=== PATIENT | female | born 1935 | race African-American/Black ===

== ENCOUNTER 2016-07-04 09:16 | Inpatient (IN) | payer MEDICARE ==
[~2016-07-04] VITALS: Ht 162.6 cm; Wt 64.9 kg
[~2016-07-04 09:16] MED LIST: AMLO1CAP PO; ASPI325T2 PO; METF-246 PO; OXYC-159 PO
[2016-07-04] MEDS ORDERED: MONT4TAB8 PO (09:31)
[2016-07-04] MEDS ORDERED: OMEP40CA34 PO (09:32)
[2016-07-04 10:57] LABS: BASOPHILS % 0.9 % (0.0-2.0); EOSINOPHILS % 0.8 % (0.0-5.0); HEMOGLOBIN. 10.2 g/dL (12.0-16.0); LYMPHOCYTES % 14.5 % (20.0-50.0); MEAN CORPUSCULAR HEMOGLOBIN 25.9 pg (28.0-32.0); MEAN CORPUSCULAR VOLUME 83.6 fL (81.0-99.0); MEAN PLATELET VOLUME 9.1 fl (7.4-10.4); MONOCYTES % 10.7 % (2.0-8.0); NEUTROPHILS % 73.1 % (40.0-76.0); PLATELET 167 x1000/uL (130-400); RED BLOOD CELL COUNT 3.95 mill/uL (4.2-5.4); WHITE BLOOD COUNT 13.4 x1000/uL (4.5-11.0)
[2016-07-04 11:07] LABS: INR 1.1; PROTHROMBIN TIME 11.4 sec
[2016-07-04 11:12] LABS: ALANINE AMINOTRANSFERASE 13 IU/L (13-61); ALBUMIN 3.4 g/dL (3.4-5.0); ANION GAP 7; CALCIUM 8.5 mg/dL (8.5-10.1); CARBON DIOXIDE 37 mEq/L (21-32); CHLORIDE 100 mEq/L (98-107); INDEX HEMOLYSI 1 (1-3); INDEX ICTERIC 1 (1-4); INDEX LIPEMIC 1 (1-3); UREA NITROGEN BLOOD 18 mg/dL (7-21); eGFR 40 mL/min (>60)
[2016-07-04 11:15] LABS: NT PRO B-TYPE NATRIURETIC PEP 1716 pg/mL (5-125); TROPONIN I 0.31 ng/mL (0.00-0.04)
[2016-07-04 12:37] LABS: CLARITY URINE CLEAR (CLEAR); COLOR URINE YELLOW (YELLOW); GLUCOSE URINE NEGATIVE (NEGATIVE); KETONES URINE NEGATIVE (NEGATIVE); LEUKOCYTE ESTERASE URINE NEGATIVE (NEGATIVE); NITRITE URINE NEGATIVE (NEGATIVE); OCCULT BLOOD URINE TRACE (NEGATIVE); PH URINE 5.5 (4.5-8.0); PROTEIN URINE 2+ (NEGATIVE); SPECIFIC GRAVITY URINE 1.021 (1.005-1.030)
[2016-07-04] MEDS ORDERED: MORPHINE SULFATE 4 MG/ML CPJ (NOT FOR IM USE) IV ONE (12:45)
[2016-07-04] MEDS ORDERED: ONDANSETRON HCL 4MG/2ML VIAL IV ONE (12:45)
[2016-07-04 12:57] LABS: SQUAMOUS EPITHELIAL CELL URINE 2+ /lpf (RARE/1+)
[2016-07-04 12:58] LABS: BACTERIA URINE TRACE
[2016-07-04 12:59] LABS: RBC URINE 0-2 /hpf (0-2); WBC URINE 0-2 /hpf (0-2); YEAST URINE RARE
[2016-07-04] MEDS ORDERED: HYDROCODONE/ACETAMINOPHEN 5/325MG TABLET PO ONE (13:00)
[2016-07-04 14:50] VITALS: BP 145/75
[2016-07-04 16:05] VITALS: BP 145/75
[2016-07-04] MEDS ORDERED: IPRATROPIUM/ALBUTEROL 0.5-3(2.5)MG/3ML NEB INH PRN (16:15)
[2016-07-04] MEDS ORDERED: CLONIDINE 0.1MG TABLET PO PRN ×2 (16:15)
[2016-07-04] MEDS ORDERED: MAGNESIUM/ALUMINUM HYDROXIDE/SIMETHICONE 30ML UDC PO PRN (16:15)
[2016-07-04] MEDS ORDERED: HYDROMORPHONE HCL/PF 2MG/ML CPJ IV PRN (16:15)
[2016-07-04] MEDS ORDERED: ONDANSETRON HCL 4MG/2ML VIAL IV PRN (16:15)
[2016-07-04] MEDS ORDERED: DOCUSATE SODIUM 100MG CAPSULE PO PRN (16:15)
[2016-07-04] MEDS: MONTELUKAST SODIUM 10MG TABLET PO SCH (16:49)
[2016-07-04] MEDS: ENOXAPARIN 30MG/0.3ML SYR SUBCUT SCH (16:50)
[2016-07-04] MEDS: BENAZEPRIL 10MG TABLET PO SCH (16:52)
[2016-07-04] MEDS ORDERED: DEXTROSE 50% WATER 50ML SYRINGE IV PRN (17:30)
[2016-07-04] MEDS: INSULIN LISPRO 100 UNITS/ML SUBCUT SCH ×2 (17:40→21:00)
[2016-07-04] MEDS: BLOOD SUGAR DIAGNOSTIC STRIP TEST SCH ×3 (17:48→21:00)
[2016-07-04 20:00] VITALS: BP_SYST 125; BP_SYST 129; BP_SYST 134; BP_DIAS 80; BP_DIAS 87
[2016-07-04] MEDS: AMLODIPINE 2.5MG TABLET PO SCH (20:03)
[2016-07-04] MEDS: HYDROCODONE/ACETAMINOPHEN 10/325MG TABLET PO PRN (20:03)
[2016-07-05] VITALS: BP_SYST 127; BP_SYST 137; BP_DIAS 68; BP_DIAS 76
[2016-07-05] MEDS: ACETAMINOPHEN 325MG TABLET PO PRN ×2 (04:52→04:53)
[2016-07-05] MEDS: BLOOD SUGAR DIAGNOSTIC STRIP TEST SCH ×5 (06:34→21:09)
[2016-07-05] MEDS: INSULIN LISPRO 100 UNITS/ML SUBCUT SCH ×4 (06:34→21:00)
[2016-07-05 07:03] LABS: BASOPHILS % 0.5 % (0.0-2.0); EOSINOPHILS % 0.3 % (0.0-5.0); HEMATOCRIT. 32.8 % (36.0-48.0); HEMOGLOBIN. 10.1 g/dL (12.0-16.0); LYMPHOCYTES % 10.8 % (20.0-50.0); MEAN CORPUSCULAR HEMOGLOBIN 25.7 pg (28.0-32.0); MEAN CORPUSCULAR HGB CONC 30.8 g/dL (31.0-37.0); MEAN CORPUSCULAR VOLUME 83.6 fL (81.0-99.0); MEAN PLATELET VOLUME 9.6 fl (7.4-10.4); MONOCYTES % 10.7 % (2.0-8.0); NEUTROPHILS % 77.7 % (40.0-76.0); PLATELET 140 x1000/uL (130-400); RED BLOOD CELL COUNT 3.93 mill/uL (4.2-5.4); RED CELL DISTRIBUTION WIDTH 14.6 % (11.6-14.6); WHITE BLOOD COUNT 12.9 x1000/uL (4.5-11.0)
[2016-07-05 07:43] LABS: CALCIUM 8.5 mg/dL (8.5-10.1); CHLORIDE 101 mEq/L (98-107); INDEX HEMOLYSI 1 (1-3); INDEX ICTERIC 1 (1-4); INDEX LIPEMIC 1 (1-3)
[2016-07-05 07:49] LABS: ALANINE AMINOTRANSFERASE 11 IU/L (13-61); ANION GAP 11; CARBON DIOXIDE 32 mEq/L (21-32); CREATINE KINASE 117 IU/L (26-192); CREATINE KINASE MB FRACTION 0.9 ng/mL (0.5-3.6); HDL CHOLESTEROL 61 mg/dL (40-59); LDL CHOLESTEROL 47 mg/dL (5-100); MAGNESIUM 2.3 mg/dL (1.8-2.4); TRIGLYCERIDE 77 mg/dL (0-150); TROPONIN I 0.16 ng/mL (0.00-0.04); UREA NITROGEN BLOOD 15 mg/dL (7-21); eGFR 52 mL/min (>60)
[2016-07-05 08:00] VITALS: BP_SYST 121; BP_SYST 131; BP_DIAS 66; BP_DIAS 75
[2016-07-05] MEDS ORDERED: MECLIZINE 25MG TABLET PO PRN (08:00)
[2016-07-05] MEDS ORDERED: ASPIRIN 81MG EC TABLET PO SCH (09:00)
[2016-07-05] MEDS: BENAZEPRIL 10MG TABLET PO SCH ×2 (09:06→16:53)
[2016-07-05] MEDS: AMLODIPINE 2.5MG TABLET PO SCH ×2 (09:06→20:55)
[2016-07-05] MEDS: ASPIRIN 81MG EC TABLET PO SCH (09:07)
[2016-07-05] MEDS: HYDROCODONE/ACETAMINOPHEN 10/325MG TABLET PO PRN (09:08)
[2016-07-05 12:00] VITALS: BP 123/71
[2016-07-05] MEDS: OXYCODONE HCL/ACETAMINOPHEN 5/325MG TABLET PO PRN ×2 (15:00→21:02)
[2016-07-05 16:00] VITALS: BP 128/66
[2016-07-05] MEDS: ENOXAPARIN 30MG/0.3ML SYR SUBCUT SCH (16:50)
[2016-07-05] MEDS: MONTELUKAST SODIUM 10MG TABLET PO SCH (16:53)
[2016-07-05 18:02] LABS: TROPONIN I 0.11 ng/mL (0.00-0.04)
[2016-07-05 20:00] VITALS: BP 131/70
[2016-07-05] MEDS: AZITHROMYCIN 500 MG in DEXT 5% WATER 250 ML IV SCH (20:53)
[2016-07-05] MEDS: CEFTRIAXONE 1 G PREMIX 50 ML IV SCH (20:53)
[2016-07-05] MEDS: GUAIFENESIN 600MG ER TABLET PO SCH (20:54)
[2016-07-05] MEDS ORDERED: SIMBRINZA BOTHEYE (22:24)
[2016-07-06] VITALS: BP 131/69
[2016-07-06] MEDS: DORZOLAMIDE 2% OPHTH 10 ML BOTTLE BOTHEYE SCH ×3 (01:43→16:41)
[2016-07-06] MEDS: BRIMONIDINE 0.2% OPHTH DROPS 5ML BOTHEYE SCH ×3 (01:43→16:41)
[2016-07-06] MEDS: HYDROMORPHONE HCL/PF 2MG/ML CPJ IV PRN (01:50)
[2016-07-06 04:00] VITALS: BP_SYST 112; BP_SYST 118; BP_SYST 128; BP_DIAS 50; BP_DIAS 69; BP_DIAS 76
[2016-07-06 05:50] LABS: BASOPHILS % 0.4 % (0.0-2.0); EOSINOPHILS % 0.5 % (0.0-5.0); HEMATOCRIT. 31.8 % (36.0-48.0); HEMOGLOBIN. 9.9 g/dL (12.0-16.0); LYMPHOCYTES % 11.3 % (20.0-50.0); MEAN CORPUSCULAR VOLUME 83.6 fL (81.0-99.0); MEAN PLATELET VOLUME 9.9 fl (7.4-10.4); MONOCYTES % 12.1 % (2.0-8.0); NEUTROPHILS % 75.7 % (40.0-76.0); PLATELET 138 x1000/uL (130-400); RED CELL DISTRIBUTION WIDTH 14.5 % (11.6-14.6); WHITE BLOOD COUNT 12.4 x1000/uL (4.5-11.0)
[2016-07-06 05:53] LABS: ANION GAP 10; CALCIUM 8.3 mg/dL (8.5-10.1); CARBON DIOXIDE 34 mEq/L (21-32); CHLORIDE 99 mEq/L (98-107); INDEX HEMOLYSI 1 (1-3); INDEX ICTERIC 1 (1-4); INDEX LIPEMIC 1 (1-3); UREA NITROGEN BLOOD 14 mg/dL (7-21); eGFR > 60 mL/min (>60)
[2016-07-06] MEDS: INSULIN LISPRO 100 UNITS/ML SUBCUT SCH ×5 (06:24→21:06)
[2016-07-06] MEDS: BLOOD SUGAR DIAGNOSTIC STRIP TEST SCH ×4 (06:24→20:41)
[2016-07-06] MEDS: OXYCODONE HCL/ACETAMINOPHEN 5/325MG TABLET PO PRN ×2 (06:49→17:35)
[2016-07-06 08:00] VITALS: BP 121/55
[2016-07-06] MEDS: ASPIRIN 81MG EC TABLET PO SCH (08:50)
[2016-07-06] MEDS: GUAIFENESIN 600MG ER TABLET PO SCH ×2 (08:51→20:35)
[2016-07-06] MEDS: BENAZEPRIL 10MG TABLET PO SCH ×2 (08:53→16:40)
[2016-07-06] MEDS: AMLODIPINE 2.5MG TABLET PO SCH ×3 (08:54→20:37)
[2016-07-06] MEDS ORDERED: DORZOLAMIDE 2% OPHTH 10 ML BOTTLE BOTHEYE SCH (09:00)
[2016-07-06] MEDS ORDERED: BRIMONIDINE 0.2% OPHTH DROPS 5ML BOTHEYE SCH (09:00)
[2016-07-06 12:00] VITALS: BP_SYST 113; BP_SYST 125; BP_DIAS 64; BP_DIAS 65
[2016-07-06 15:48] VITALS: BP 114/63
[2016-07-06] MEDS: MONTELUKAST SODIUM 10MG TABLET PO SCH (16:41)
[2016-07-06] MEDS: ENOXAPARIN 40MG/0.4ML SYR SUBCUT SCH (16:41)
[2016-07-06] MEDS: CEFTRIAXONE 1 G PREMIX 50 ML IV SCH (19:47)
[2016-07-06 20:00] VITALS: BP 124/77
[2016-07-06] MEDS: AZITHROMYCIN 500 MG in DEXT 5% WATER 250 ML IV SCH (20:35)
[2016-07-07] VITALS (8 sets, daily range): BP systolic 110–151; BP diastolic 60–86
[2016-07-07] MEDS: HYDROMORPHONE HCL/PF 2MG/ML CPJ IV PRN ×2 (00:35→13:31)
[2016-07-07] MEDS: OXYCODONE HCL/ACETAMINOPHEN 5/325MG TABLET PO PRN ×2 (04:39→19:45)
[2016-07-07] MEDS: BLOOD SUGAR DIAGNOSTIC STRIP TEST SCH ×4 (06:29→21:25)
[2016-07-07] MEDS: INSULIN LISPRO 100 UNITS/ML SUBCUT SCH ×4 (06:41→21:00)
[2016-07-07 06:46] LABS: HEMOGLOBIN. 10.1 g/dL (12.0-16.0); MEAN CORPUSCULAR HEMOGLOBIN 26.3 pg (28.0-32.0); MEAN CORPUSCULAR HGB CONC 31.6 g/dL (31.0-37.0); PLATELET 149 x1000/uL (130-400); RED BLOOD CELL COUNT 3.85 mill/uL (4.2-5.4); RED CELL DISTRIBUTION WIDTH 14.6 % (11.6-14.6); WHITE BLOOD COUNT 10.3 x1000/uL (4.5-11.0)
[2016-07-07 07:09] LABS: DIFFERENTIAL COMMENT 1
[2016-07-07 07:23] LABS: CHLORIDE 98 mEq/L (98-107); INDEX HEMOLYSI 1 (1-3); INDEX ICTERIC 1 (1-4); INDEX LIPEMIC 1 (1-3)
[2016-07-07 08:04] LABS: ANION GAP 13; CARBON DIOXIDE 32 mEq/L (21-32); UREA NITROGEN BLOOD 14 mg/dL (7-21); eGFR > 60 mL/min (>60)
[2016-07-07] MEDS: AMLODIPINE 2.5MG TABLET PO SCH ×2 (09:00→21:00)
[2016-07-07] MEDS: BENAZEPRIL 10MG TABLET PO SCH ×2 (09:00→17:48)
[2016-07-07 09:11] LABS: PLATELET ESTIMATE NORMAL
[2016-07-07] MEDS: BRIMONIDINE 0.2% OPHTH DROPS 5ML BOTHEYE SCH ×2 (09:17→17:47)
[2016-07-07] MEDS: ASPIRIN 81MG EC TABLET PO SCH (09:19)
[2016-07-07] MEDS: GUAIFENESIN 600MG ER TABLET PO SCH ×2 (09:19→21:01)
[2016-07-07] MEDS: DORZOLAMIDE 2% OPHTH 10 ML BOTTLE BOTHEYE SCH ×2 (09:19→17:48)
[2016-07-07] MEDS: ENOXAPARIN 40MG/0.4ML SYR SUBCUT SCH (17:47)
[2016-07-07] MEDS: MONTELUKAST SODIUM 10MG TABLET PO SCH (17:48)
[2016-07-07] MEDS: CEFTRIAXONE 1 G PREMIX 50 ML IV SCH (19:44)
[2016-07-07] MEDS: AZITHROMYCIN 500 MG in DEXT 5% WATER 250 ML IV SCH (21:01)
[2016-07-08 00:09] VITALS: BP 126/69
[2016-07-08] MEDS: HYDROMORPHONE HCL/PF 2MG/ML CPJ IV PRN ×3 (03:32→12:37)
[2016-07-08 04:07] VITALS: BP 156/85
[2016-07-08] MEDS: BLOOD SUGAR DIAGNOSTIC STRIP TEST SCH ×2 (06:22→12:25)
[2016-07-08] MEDS: INSULIN LISPRO 100 UNITS/ML SUBCUT SCH ×2 (06:38→12:36)
[2016-07-08] MEDS: OXYCODONE HCL/ACETAMINOPHEN 5/325MG TABLET PO PRN (07:45)
[2016-07-08 08:00] VITALS: BP 138/81
[2016-07-08] MEDS: AMLODIPINE 2.5MG TABLET PO SCH (09:00)
[2016-07-08] MEDS: DORZOLAMIDE 2% OPHTH 10 ML BOTTLE BOTHEYE SCH (09:40)
[2016-07-08] MEDS: BRIMONIDINE 0.2% OPHTH DROPS 5ML BOTHEYE SCH (09:40)
[2016-07-08] MEDS: GUAIFENESIN 600MG ER TABLET PO SCH (09:41)
[2016-07-08] MEDS: ASPIRIN 81MG EC TABLET PO SCH (09:41)
[2016-07-08] MEDS: BENAZEPRIL 10MG TABLET PO SCH (09:41)
[2016-07-08 12:00] VITALS: BP_SYST 143; BP_SYST 152; BP_SYST 157; BP_DIAS 72; BP_DIAS 78; BP_DIAS 84
[2016-07-08] MEDS ORDERED: SILDENAFIL CITRATE 20MG TABLET PO SCH (14:00)
[2016-07-08 14:27] VITALS: BP 129/81
[2016-07-08 15:49] VITALS: BP 129/81
[2016-07-08] MEDS: ENOXAPARIN 40MG/0.4ML SYR SUBCUT SCH (16:00)
[2016-07-08] MEDS ORDERED: AZITHROMYCIN 500 MG TABLET PO SCH (21:00)
== END 2016-07-08 16:19 | disposition home or self-care (01) | DRG 551 ==
LOC: ER 10:08 → 8WST 13:21
PROVIDERS: ADMIT Internal Medicine; ATTEND Internal Medicine
DX: S32.028A Other fracture of second lumbar vertebra, initial encounter for closed fracture (principal); J15.9 Unspecified bacterial pneumonia; J44.0 Chronic obstructive pulmonary disease with (acute) lower respiratory infection; I27.2 Other secondary pulmonary hypertension; I11.9 Hypertensive heart disease without heart failure; S09.90XA Unspecified injury of head, initial encounter; D64.9 Anemia, unspecified; E11.9 Type 2 diabetes mellitus without complications; M41.9 Scoliosis, unspecified; N28.9 Disorder of kidney and ureter, unspecified; E78.00 Pure hypercholesterolemia, unspecified; H40.9 Unspecified glaucoma; I25.10 Atherosclerotic heart disease of native coronary artery without angina pectoris; I34.0 Nonrheumatic mitral (valve) insufficiency; J44.9 Chronic obstructive pulmonary disease, unspecified; R55 Syncope and collapse; J45.909 Unspecified asthma, uncomplicated; G89.4 Chronic pain syndrome; W18.39XA Other fall on same level, initial encounter; I36.1 Nonrheumatic tricuspid (valve) insufficiency; E86.0 Dehydration; R39.198 Other difficulties with micturition; M19.90 Unspecified osteoarthritis, unspecified site; K80.20 Calculus of gallbladder without cholecystitis without obstruction; M48.06 Spinal stenosis, lumbar region; Z99.81 Dependence on supplemental oxygen; Z95.5 Presence of coronary angioplasty implant and graft; Z79.899 Other long term (current) drug therapy; Z88.6 Allergy status to analgesic agent; Z91.013 Allergy to seafood; Z86.73 Personal history of transient ischemic attack (TIA), and cerebral infarction without residual deficits; Y92.091 Bathroom in other non-institutional residence as the place of occurrence of the external cause; Y93.89 Activity, other specified
CPT/HCPCS: 36415; 70544; 70551; 71010; 71250; 72100; 72125; 72148; 80048; 80053; 80061; 81001; 82550; 82553; 82962; 83036; 83735; 83880; 84484; 85025; 85379; 85610; 85651; 93005; 93306; 93880; 93970; 96374; 97163; 97166; 99285; J0456; J0696; J1170; J1650; J1815; J2270; J2405; J7040; J7060

== ENCOUNTER 2016-11-19 16:29 | Emergency (ER) | payer MEDICARE ==
[~2016-11-19] VITALS: Ht 162.6 cm; Wt 58.0 kg
[~2016-11-19 16:29] MED LIST changes: +ASPI-986 PO; -ASPI325T2 PO; -METF-246 PO; +METF10002 PO; +MONT4TAB8 PO; +OMEP40CA34 PO; +SIMBRINZA BOTHEYE
[2016-11-19] MEDS ORDERED: TRAMADOL 50MG TABLET PO ONE (18:15)
[2016-11-19] MEDS ORDERED: ACETAMINOPHEN 325MG TABLET PO ONE (18:15)
[2016-11-19 18:37] LABS: BASOPHILS % 0.5 % (0.0-2.0); EOSINOPHILS % 1.8 % (0.0-5.0); HEMATOCRIT. 34.6 % (36.0-48.0); HEMOGLOBIN. 11.1 g/dL (12.0-16.0); LYMPHOCYTES % 34.7 % (20.0-50.0); MEAN CORPUSCULAR HEMOGLOBIN 26.6 pg (28.0-32.0); MEAN CORPUSCULAR VOLUME 82.7 fL (81.0-99.0); MEAN PLATELET VOLUME 9.1 fl (7.4-10.4); MONOCYTES % 12.2 % (2.0-8.0); NEUTROPHILS % 50.8 % (40.0-76.0); PLATELET 133 x1000/uL (130-400); RED BLOOD CELL COUNT 4.18 mill/uL (4.2-5.4); RED CELL DISTRIBUTION WIDTH 14.3 % (11.6-14.6)
[2016-11-19 18:41] LABS: CHLORIDE 103 mEq/L (98-107)
[2016-11-19 18:50] LABS: CARBON DIOXIDE 33 mEq/L (21-32)
[2016-11-19 18:51] LABS: TROPONIN I < 0.02 ng/mL (0.00-0.04)
[2016-11-19 19:05] VITALS: BP 150/81
== END 2016-11-19 19:57 | disposition home or self-care (01) ==
LOC: ER 17:58
DX: S09.90XA Unspecified injury of head, initial encounter (principal); J45.909 Unspecified asthma, uncomplicated; J44.9 Chronic obstructive pulmonary disease, unspecified; E11.9 Type 2 diabetes mellitus without complications; I10 Essential (primary) hypertension; H40.9 Unspecified glaucoma; Z90.710 Acquired absence of both cervix and uterus; Z88.5 Allergy status to narcotic agent; Z91.013 Allergy to seafood; Z90.49 Acquired absence of other specified parts of digestive tract; Z98.49 Cataract extraction status, unspecified eye; Z95.5 Presence of coronary angioplasty implant and graft; W01.0XXA Fall on same level from slipping, tripping and stumbling without subsequent striking against object, initial encounter; Y93.89 Activity, other specified; Y92.510 Bank as the place of occurrence of the external cause
CPT/HCPCS: 36415; 70450; 72100; 80048; 84484; 85025; 93005; 99285

== ENCOUNTER 2017-09-07 11:00 | Emergency (ER) | payer MEDICARE ==
[~2017-09-07] VITALS: Ht 165.1 cm; Wt 60.0 kg
[~2017-09-07 11:00] MED LIST changes: +ALBU18HF2 IH; +LATA2.5D2 EACHEYE; +LINA145C PO; +LOT105 PO; +MECL-109 PO; -MONT4TAB8 PO; +MONT4TAB9 PO; +VIAG50 PO
[2017-09-07] MEDS ORDERED: ACETAMINOPHEN 325MG TABLET PO STA (11:38)
[2017-09-07] MEDS ORDERED: LEVOFLOXACIN 750MG PREMIX 150 ML IV ONE (11:45)
[2017-09-07] MEDS ORDERED: SODIUM CHLORIDE 0.9% 1000ML BAG (SEPSIS BOLUS) IV ONE (11:45)
[2017-09-07 12:22] LABS: CHLORIDE 102 mEq/L (98-107)
[2017-09-07 12:23] LABS: CLARITY URINE CLEAR (CLEAR); COLOR URINE YELLOW (YELLOW); KETONES URINE NEGATIVE (NEGATIVE); LEUKOCYTE ESTERASE URINE NEGATIVE (NEGATIVE); NITRITE URINE NEGATIVE (NEGATIVE); OCCULT BLOOD URINE NEGATIVE (NEGATIVE); PROTEIN URINE NEGATIVE (NEGATIVE); SPECIFIC GRAVITY URINE 1.015 (1.005-1.030)
[2017-09-07 12:25] LABS: INR 1.1; PARTIAL THROMBOPLASTIN TIME 25.4 sec (23.4-31.0); PROTHROMBIN TIME 11.1 sec (9.4-11.6)
[2017-09-07 12:28] LABS: BASOPHILS % 0.7 % (0.0-2.0); EOSINOPHILS % 3.5 % (0.0-5.0); HEMATOCRIT. 36.1 % (36.0-48.0); HEMOGLOBIN. 11.6 g/dL (12.0-16.0); MEAN CORPUSCULAR HEMOGLOBIN 26.4 pg (28.0-32.0); MEAN CORPUSCULAR VOLUME 82.2 fL (81.0-99.0); MEAN PLATELET VOLUME 9.4 fl (7.4-10.4); MONOCYTES % 10.8 % (2.0-8.0); PLATELET 221 x1000/uL (130-400); RED BLOOD CELL COUNT 4.39 mill/uL (4.2-5.4); RED CELL DISTRIBUTION WIDTH 15.1 % (11.6-14.6)
[2017-09-07] MEDS ORDERED: DESMOPRESSIN ACETATE 4MCG/ML AMP IV ONE (12:45)
[2017-09-07] MEDS ORDERED: LEVETIRACETAM 500MG PREMIX 100 ML IV ONE (12:45)
[2017-09-07] MEDS ORDERED: DESMOPRESSIN ACETATE IVPB 18 MCG in SODIUM CHLORIDE 0.9% 50 ML IV ONE (13:00)
[2017-09-07 13:31] VITALS: BP 175/75
== END 2017-09-07 13:56 | disposition short-term general hospital (02) ==
LOC: ER 11:25
DX: S06.5X9A Traumatic subdural hemorrhage with loss of consciousness of unspecified duration, initial encounter (principal); J44.9 Chronic obstructive pulmonary disease, unspecified; H40.9 Unspecified glaucoma; E11.9 Type 2 diabetes mellitus without complications; I10 Essential (primary) hypertension; Z86.73 Personal history of transient ischemic attack (TIA), and cerebral infarction without residual deficits; Z90.710 Acquired absence of both cervix and uterus; Z79.82 Long term (current) use of aspirin; Z88.5 Allergy status to narcotic agent; Z90.49 Acquired absence of other specified parts of digestive tract; Z91.013 Allergy to seafood
CPT/HCPCS: 36415; 51702; 70450; 71045; 80053; 81003; 83605; 83880; 84484; 85025; 85610; 85730; 86850; 86900; 86901; 87040; 87086; 87804; 93005; 96365; 96366; 96368; 99291; J1953; J1956; J2597; J7030; J7040; A4315